=== PATIENT | male | born 1940 ===

== ENCOUNTER 2019-11-07 15:05 | Inpatient (IN) | payer MEDICARE, OTHER, SELFPAY ==
[2019-11-07 15:05] VITALS: BP 125/57; PULSE 66; RESP 22; TEMP 36.4; O2SAT 100; BMI 20.3
--- NOTE | 2019-11-07 15:23 | CT_ITS ---
WS: [id number] CT HEAD NONCONTRAST HISTORY: seizure TECHNIQUE: Contiguous axial imaging performed through the brain in 2.5 mm imaging. Bone and soft tiss ue windows. Sagittal and coronal reformats reviewed. All CT scans at [facility] use at ast one of these dose optimization techniques: automated exposure control; mA and/or kV adjustment pe r patient size (includes targeted exams where dose is matched to clinical indication); or iterative r econstruction. DLP: 499.55 mGy.cm COMPARISON: None available. Moderate size subdural fluid collection over the LEFT cerebrum with a maximum diameter of 12 mm. Subd ural collection is slightly lower density than the CSF in the ventricles. No acute blood products are identified. There is mass effect upon the LEFT frontal, temporal and parietal lobes. Very slight lelia ft of the midline structures by 4 mm. Minimal effacement of the LEFT lateral ventricle. Mild atrophy and chronic ischemic disease. Basal ganglia calcifications. Ventricles: Normal size with no hydrocephalus. Paranasal sinuses: Mild mucoperiosteal thickening in the RIGHT frontal and ethmoid air cells. Mastoid air cells: Well pneumatized. Calvarium and scalp: Skull is intact with no soft tissue edema or swelling. CT/CT head wo con* [id number] IMPRESSION: 1. No acute intracranial hemorrhage. 2. Low-attenuation moderate-sized LEFT subdural hematoma with a maximum diamet er of 12 mm. Alternatively if the patient was very anemic this could be an acut e subdural but more likely chronic subdural hematoma. 3. Mild mass effect upon the LEFT cerebrum with 4 mm of midline shift to the R IGHT.
--- NOTE | 2019-11-07 15:23 | XR_ITS ---
WS: [id number] PORTABLE CHEST HISTORY: chest pain COMPARISON: None available. Chronic interstitial thickening throughout both lungs. No pneumonia. Normal vasculature. No pleural e ffusion or pneumothorax. Cardiac size: Normal. Mediastinum/Aorta: Mild atherosclerosis aorta. Mild osteopenia. XR/XR chest 1V portable [id number] IMPRESSION: Mildly ectatic aorta. No pneumonia.
--- NOTE | 2019-11-07 15:24 | ED_ITS ---
Documented by User: DAVID Singh 11/08/19 07:12 HPI - Altered Mental Status General: Chief Complaint: Altered Mental Status Stated Complaint: AMS Time Seen by Provider: 11/07/19 15:23 Source: family Mode of arrival: EMS Limitations: altered mental status History of Present Illness: HPI narrative: Patient is a 79-year-old male on hospice care for leukemia who presents to ED today along with one of his sons for complaints of an episode of altered mental status. According to the son, the patient was with the hospice nurse when she began noticing the patient convulsing. She stated patient's eyes rolled back in his head , he became unconscious, and began having very stiff jerking like movements. Hospice nurse stated episode lasted approximately 3 minutes. Afterwards patient seemed very confused and altered. The son states patient has had one previous similar episode and was told it was due to anemia. He is not on seizure medications. Patient during my exam is very cachectic appearing. He can tell me his name and . He recognizes and can name his son in the room. He can follow my commands. He does not seem to know where he is at currently however. MD complaint: other (possible seizure) Onset (ago): hour(s) Timing confirmed by: family member and caregiver Treatments prior to arrival: oxygen Review of Systems General: Reports: ROS unobtainable due to medical condition [facility] ED PFSH: Medical History (Updated 11/08/19 @ 07:12 by DAVID Singh) AML (acute myeloblastic leukemia) COPD (chronic obstructive pulmonary disease) GERD (gastroesophageal reflux disease) HTN (hypertension) Physical Exam Const: COMMON NORMALS: alert EXAM LIMITATIONS: other limitations GENERAL APPEARANCE: frail appearing NUTRITIONAL APPEARANCE: cachectic ORIENTATION/CONSCIOUSNESS: Yes awake, Yes oriented to person and Yes Other orientation findings (knows and recognizes his son in the room) HENMT: COMMON NORMALS: normocephalic and atraumatic HEAD & SCALP: normocephalic and atraumatic Eye: COMMON NORMALS: Equal, round and reactive pupils present and EOMs intact bilaterally PUPIL: Yes Equal, round and reactive pupils present Neck/C-Spine: COMMON NORMALS: full ROM Chest: COMMONS NORMALS: normal inspection of the chest and normal palpation of entire chest wall Resp: COMMON NORMALS: clear to auscultation bilaterally EFFORT & INSPECTION: Yes uses accessory muscles AUSCULTATION: clear to auscultation bilaterally OTHER: son states breathing has slowly been worsening-chronic smoker, still smoking everyday Cardio: COMMON NORMALS: regular rate RATE: regular rate RHYTHM: abnormal rhythm GI: COMMON NORMALS: Normal to inspection, nondistended, normoactive bowel sounds present, Soft to palpation, non-tender, No hepatosplenomegaly present and no masses PALPATION: Yes Soft to palpation and Yes No hepatosplenomegaly present Extremity: COMMON NORMALS: capillary refill normal, no joint enlargement and no calf tenderness NARRATIVE EXTREMITY EXAM: bilateral LE non-pitting edema Neuro: TOMASZ COMA SCALE: document GCS findings Tomasz coma scale eye opening: Spontaneous Carlton coma scale verbal response: Orientated Tomasz coma scale motor response: Obey commands Carlton coma scale total score: 15 COMMON NORMALS: moves all extremities SENSORIUM/ORIENTATION: Yes alert and Yes oriented to person Skin: COMMON NORMALS: no rashes or lesions noted GENERAL SKIN EXAM: no rashes or lesions noted Course ED course: pt arrived via EMS on a non-rebreather; son states patient normally does not wear O2 although admittingly states his breathing has progressively worsened over the past few weeks/months; O2 was taken off so patient could be monitored; RN alerted me shortly after that sats had dipped to 88% so he will be placed back on O2 Vital Signs: Vital signs: Vital Signs Temperature 97.5 F L 11/07/19 15:05 Pulse Rate 76 11/07/19 18:28 Respiratory Rate 19 H 11/07/19 18:28 Blood Pressure 134/65 11/07/19 18:28 Pulse Oximetry 100 11/07/19 18:28 MDM - Altered Mental Status MDM Narrative: Medical decision making narrative: I have spoken to family (son in the room and son in [place] that has DPOA) and they have elected for patient not to receive any additional treatment at this time. Son does not want to take his father home and would rather him be admitted with comfort care and allow him to pass here. I have spoken to Dr. Patiño and he will assume care of patient and speak hospitalist and hospice. Lab Data: Labs: Lab Results 11/07/19 11/07/19 11/07/19 Range/Units 15:39 15:39 15:39 WBC 393.8 H* (4.0-10.0) 10^3/ uL RBC 2.15 L (4.1-5.3) 10^6/u L Hgb 6.3 L* (11.7-16.6) g/dL Hct 21.6 L (42.0-52.0) % MCV 100.5 H (80-94) fL MCH 29.3 (28.0-34.0) pg MCHC 29.2 L (30.0-36.0) g/dL RDW 26.1 H (12.1-15.1) % Plt Count 46 L (130-400) 10^3/c mm MPV 9.9 (7.4-10.4) fL Nucleated RBC % (a uto) 0.6 % Total Counted 100 (0-100) Absolute Neutrophi ls 27.6 H (1.4-6.5) 10^3/c mm Segmented Neutroph ils 7 % Abs Segm Neuts (Ma n) 27.5 H (1.6-7.1) 10/cmm Band Neutrophils 0.0 % Abs Band Neuts (Ma n) 0.0 (0.0-1.2) 10^3/c mm Lymphocytes (Manua l) 0 % Monocytes (Manual) 90.0 % Absolute Monocytes 354.4 H (0.1-0.6) 10^3/c mm Nucleated RBCs 3.0 H (0-1) /100WBC Nucleated RBCs # 2.4 /100WBC Platelet Estimate Decreased (Normal) Hypochromasia 2+ H Anisocytosis 1+ H PT (10.5-13.3) SECO NDS INR (0.8-1.2) APTT (23.9-36.7) SECO NDS Sodium 140 (136-145) mmol/L Potassium 2.7 L* (3.5-5.1) mmol/L Chloride 100 (98-107) mmol/L Carbon Dioxide 23 (22-29) mmol/L Anion Gap 19.7 H (5-19) BUN 36 H (8-23) mg/dL Creatinine 5.2 H (0.7-1.2) mg/dL Glucose 123 H (65-115) mg/dL Calculated Osmolal ity 289 (285-295) mOsm/k g Lactate 1.9 (0.5-2.2) mmol/L Calcium 8.1 L (8.5-10.5) mg/dL Magnesium 2.1 (1.7-2.3) mg/dL Total Bilirubin 1.6 H (0.15-1.2) mg/dL AST 52 H (0-40) U/L ALT 21 (0-41) U/L Alkaline Phosphata se 175 H (40-130) IU/L Troponin T Baselin e (0-15) ng/L NT-Pro-B Natriuret Pep 2655 H (0-450) pg/mL Total Protein 5.4 L (6.6-8.7) g/dL Albumin 3.3 L (3.5-5.2) g/dL Globulin 2.1 (1.3-4.6) g/dL 11/07/19 11/07/19 Range/Units 15:39 15:39 WBC (4.0-10.0) 10^3/ uL RBC (4.1-5.3) 10^6/u L Hgb (11.7-16.6) g/dL Hct (42.0-52.0) % MCV (80-94) fL MCH (28.0-34.0) pg MCHC (30.0-36.0) g/dL RDW (12.1-15.1) % Plt Count (130-400) 10^3/c mm MPV (7.4-10.4) fL Nucleated RBC % (a uto) % Total Counted (0-100) Absolute Neutrophi ls (1.4-6.5) 10^3/c mm Segmented Neutroph ils % Abs Segm Neuts (Ma n) (1.6-7.1) 10/cmm Band Neutrophils % Abs Band Neuts (Ma n) (0.0-1.2) 10^3/c mm Lymphocytes (Manua l) % Monocytes (Manual) % Absolute Monocytes (0.1-0.6) 10^3/c mm Nucleated RBCs (0-1) /100WBC Nucleated RBCs # /100WBC Platelet Estimate (Normal) Hypochromasia Anisocytosis PT 18.50 H (10.5-13.3) SECO NDS INR 1.48 H (0.8-1.2) APTT 45.6 H (23.9-36.7) SECO NDS Sodium (136-145) mmol/L Potassium (3.5-5.1) mmol/L Chloride (98-107) mmol/L Carbon Dioxide (22-29) mmol/L Anion Gap (5-19) BUN (8-23) mg/dL Creatinine (0.7-1.2) mg/dL Glucose (65-115) mg/dL Calculated Osmolal ity (285-295) mOsm/k g Lactate (0.5-2.2) mmol/L Calcium (8.5-10.5) mg/dL Magnesium (1.7-2.3) mg/dL Total Bilirubin (0.15-1.2) mg/dL AST (0-40) U/L ALT (0-41) U/L Alkaline Phosphata se (40-130) IU/L Troponin T Baselin e 42 H (0-15) ng/L NT-Pro-B Natriuret Pep (0-450) pg/mL Total Protein (6.6-8.7) g/dL Albumin (3.5-5.2) g/dL Globulin (1.3-4.6) g/dL Imaging Data^: CXR: Radiologist's impression: [place] [address] XRay Report Signed Patient: TENZIN DEAN Unit #: [id number] : 1940 Age/Sex: 79 / M ADM Date: 11/07/19 Loc: ER Room/Bed: Attending Dr: Ordering Provider/Ordering MD: Laurie Montes De Oca Date of Service: 11/07/19 Procedure(s): XR chest 1V portable [id number] Accession Number(s): [id number] Report Number: [id number] WS: [id number] PORTABLE CHEST HISTORY: chest pain COMPARISON: None available. Chronic interstitial thickening throughout both lungs. No pneumonia. Normal vasculature. No pleural effusion or pneumothorax. Cardiac size: Normal. Mediastinum/Aorta: Mild atherosclerosis aorta. Mild osteopenia. XR/XR chest 1V portable [id number] IMPRESSION: Mildly ectatic aorta. No pneumonia. Dictated By: Argentina Ferrer DO Signed By: Argentina Ferrer DO Signed Date/Time: 11/07/19 1544 DD/ 1543 Discharge Plan Discharge Patient Disposition: Admitted As Inpatient Admit Provider: Charlene Prescott Clinical Impression: Thrombocytopenia, Acute hypokalemia, Hyperleukocytosis AML (acute myeloblastic leukemia) Qualifiers: Leukemia Active/Remission status: without remission Qualified Code(s): C92.00 - Acute myeloblastic leukemia, not having achieved remission Acute renal failure Qualifiers: Acute renal failure type: unspecified Qualified Code(s): N17.9 - Acute kidney failure, unspecified Condition: Stable Discharge Date/Time: 11/07/19 18:54 Sign Out Sign Out Data: Patient Sign Out occurred on 11/07/19 at 17:01. Patient's care was discussed, and care was transferred from to Mercedes Patiño. Coding Level of Care Code ED Compressor Station Engineer for Chg Fwd Exam Comprehensive Documented by User: Mercedes Patiño 11/07/19 20:24 HPI - Altered Mental Status General: Chief Complaint: Altered Mental Status Stated Complaint: AMS Time Seen by Provider: 11/07/19 15:23 PFS ED PFSH: Medical History (Updated 11/08/19 @ 07:12 by DAVID Singh) AML (acute myeloblastic leukemia) COPD (chronic obstructive pulmonary disease) GERD (gastroesophageal reflux disease) HTN (hypertension) Course Vital Signs: Vital signs: Vital Signs Temperature 97.5 F L 11/07/19 15:05 Pulse Rate 76 11/07/19 18:28 Respiratory Rate 19 H 11/07/19 18:28 Blood Pressure 134/65 11/07/19 18:28 Pulse Oximetry 100 11/07/19 18:28 MDM - Altered Mental Status MDM Narrative: Medical decision making narrative: Patient care assumed by me from DAVID Singh. Please see her note for history, physical exam and medical decision-making notes. I have reviewed her evaluation and care discussed the case with her personally. I agree with her assessment and plan. I have spoken with the family and the patient and at this time they choose to be only comfort care. The patient at this time does not want to go back and at home with hospice. He prefers to come to the hospital as the family does not believe that hospice is adequately caring for him at the home. I discussed the case in full with Dr. Prescott and she is in agreement. Lab Data: Labs: Lab Results 11/07/19 11/07/19 11/07/19 Range/Units 15:39 15:39 15:39 WBC 393.8 H* (4.0-10.0) 10^3/ uL RBC 2.15 L (4.1-5.3) 10^6/u L Hgb 6.3 L* (11.7-16.6) g/dL Hct 21.6 L (42.0-52.0) % MCV 100.5 H (80-94) fL MCH 29.3 (28.0-34.0) pg MCHC 29.2 L (30.0-36.0) g/dL RDW 26.1 H (12.1-15.1) % Plt Count 46 L (130-400) 10^3/c mm MPV 9.9 (7.4-10.4) fL Nucleated RBC % (a uto) 0.6 % Total Counted 100 (0-100) Absolute Neutrophi ls 27.6 H (1.4-6.5) 10^3/c mm Segmented Neutroph ils 7 % Abs Segm Neuts (Ma n) 27.5 H (1.6-7.1) 10/cmm Band Neutrophils 0.0 % Abs Band Neuts (Ma n) 0.0 (0.0-1.2) 10^3/c mm Lymphocytes (Manua l) 0 % Monocytes (Manual) 90.0 % Absolute Monocytes 354.4 H (0.1-0.6) 10^3/c mm Nucleated RBCs 3.0 H (0-1) /100WBC Nucleated RBCs # 2.4 /100WBC Platelet Estimate Decreased (Normal) Hypochromasia 2+ H Anisocytosis 1+ H PT (10.5-13.3) SECO NDS INR (0.8-1.2) APTT (23.9-36.7) SECO NDS Sodium 140 (136-145) mmol/L Potassium 2.7 L* (3.5-5.1) mmol/L Chloride 100 (98-107) mmol/L Carbon Dioxide 23 (22-29) mmol/L Anion Gap 19.7 H (5-19) BUN 36 H (8-23) mg/dL Creatinine 5.2 H (0.7-1.2) mg/dL Glucose 123 H (65-115) mg/dL Calculated Osmolal ity 289 (285-295) mOsm/k g Lactate 1.9 (0.5-2.2) mmol/L Calcium 8.1 L (8.5-10.5) mg/dL Magnesium 2.1 (1.7-2.3) mg/dL Total Bilirubin 1.6 H (0.15-1.2) mg/dL AST 52 H (0-40) U/L ALT 21 (0-41) U/L Alkaline Phosphata se 175 H (40-130) IU/L Troponin T Baselin e (0-15) ng/L NT-Pro-B Natriuret Pep 2655 H (0-450) pg/mL Total Protein 5.4 L (6.6-8.7) g/dL Albumin 3.3 L (3.5-5.2) g/dL Globulin 2.1 (1.3-4.6) g/dL 11/07/19 11/07/19 Range/Units 15:39 15:39 WBC (4.0-10.0) 10^3/ uL RBC (4.1-5.3) 10^6/u L Hgb (11.7-16.6) g/dL Hct (42.0-52.0) % MCV (80-94) fL MCH (28.0-34.0) pg MCHC (30.0-36.0) g/dL RDW (12.1-15.1) % Plt Count (130-400) 10^3/c mm MPV (7.4-10.4) fL Nucleated RBC % (a uto) % Total Counted (0-100) Absolute Neutrophi ls (1.4-6.5) 10^3/c mm Segmented Neutroph ils % Abs Segm Neuts (Ma n) (1.6-7.1) 10/cmm Band Neutrophils % Abs Band Neuts (Ma n) (0.0-1.2) 10^3/c mm Lymphocytes (Manua l) % Monocytes (Manual) % Absolute Monocytes (0.1-0.6) 10^3/c mm Nucleated RBCs (0-1) /100WBC Nucleated RBCs # /100WBC Platelet Estimate (Normal) Hypochromasia Anisocytosis PT 18.50 H (10.5-13.3) SECO NDS INR 1.48 H (0.8-1.2) APTT 45.6 H (23.9-36.7) SECO NDS Sodium (136-145) mmol/L Potassium (3.5-5.1) mmol/L Chloride (98-107) mmol/L Carbon Dioxide (22-29) mmol/L Anion Gap (5-19) BUN (8-23) mg/dL Creatinine (0.7-1.2) mg/dL Glucose (65-115) mg/dL Calculated Osmolal ity (285-295) mOsm/k g Lactate (0.5-2.2) mmol/L Calcium (8.5-10.5) mg/dL Magnesium (1.7-2.3) mg/dL Total Bilirubin (0.15-1.2) mg/dL AST (0-40) U/L ALT (0-41) U/L Alkaline Phosphata se (40-130) IU/L Troponin T Baselin e 42 H (0-15) ng/L NT-Pro-B Natriuret Pep (0-450) pg/mL Total Protein (6.6-8.7) g/dL Albumin (3.5-5.2) g/dL Globulin (1.3-4.6) g/dL Discharge Plan Discharge Patient Disposition: Admitted As Inpatient Admit Provider: Charlene Prescott Clinical Impression: Thrombocytopenia, Acute hypokalemia, Hyperleukocytosis AML (acute myeloblastic leukemia) Qualifiers: Leukemia Active/Remission status: without remission Qualified Code(s): C92.00 - Acute myeloblastic leukemia, not having achieved remission Acute renal failure Qualifiers: Acute renal failure type: unspecified Qualified Code(s): N17.9 - Acute kidney failure, unspecified Condition: Stable Discharge Date/Time: 11/07/19 18:54 Sign Out Sign Out Data: Patient Sign Out occurred on 11/07/19 at 17:01. Patient's care was discussed, and care was transferred from to Mercedes Patiño. Coding Level of Care Code ED Compressor Station Engineer for [place]rish Fwd Exam Comprehensive
--- NOTE | 2019-11-07 15:36 | ECG_ITS ---
Measurements Intervals [place] Rate: 75 P: 64 MI: 151 QRS: 37 QRSD: 100 T: -26 QT: 429 QTc: 482 SINUS RHYTHM WITH FREQUENT SUPRAVENTRICULAR PREMATURE COMPLEXES NONSPECIFIC ST & T-WAVE ABNORMALITY No previous ECG available for comparison Electronically Signed On 11-07-2019 19:29:10 CDT by Lilia Rausch M.D. [id number]
[2019-11-07 15:59] LABS: Hematocrit 21.6 % (42.0-52.0); Mean Corpuscular HGB Conc 29.2 g/dL (30.0-36.0); Mean Corpuscular Hemoglobin 29.3 pg (28.0-34.0); Mean Corpuscular Volume 100.5 fL (80-94); Mean Platelet Volume 9.9 fL (7.4-10.4); Nucleated Red Blood Cells # 2.4 /100WBC; Nucleated Red Blood Cells % 0.6 %; Platelet Count 46 10^3/cmm (130-400); Red Blood Count 2.15 10^6/uL (4.1-5.3); Red Cell Distribution Width 26.1 % (12.1-15.1)
[2019-11-07 16:02] LABS: INR 1.48 (0.8-1.2)
[2019-11-07 16:03] LABS: Partial Thromboplastin Time 45.6 SECONDS (23.9-36.7)
[2019-11-07 16:05] VITALS: BP 133/61; PULSE 80; RESP 12; O2SAT 100
[2019-11-07 16:06] LABS: Lactate (Lactic Acid level) 1.9 mmol/L (0.5-2.2)
[2019-11-07 16:15] LABS: Alanine Aminotransferase 21 U/L (0-41); Albumin Level 3.3 g/dL (3.5-5.2); Alkaline Phosphatase 175 IU/L (40-130); Anion Gap 19.7 (5-19); Aspartate Amino Transferase 52 U/L (0-40); Blood Urea Nitrogen 36 mg/dL (8-23); Calcium 8.1 mg/dL (8.5-10.5); Carbon Dioxide 23 mmol/L (22-29); Chloride 100 mmol/L (98-107); Globulin 2.1 g/dL (1.3-4.6); Glucose 123 mg/dL (65-115); Magnesium 2.1 mg/dL (1.7-2.3); NT Pro B Type Natriuretic Pept 2655 pg/mL (0-450); Osmolality Calculated 289 mOsm/kg (285-295); Sodium 140 mmol/L (136-145); Total Bilirubin 1.6 mg/dL (0.15-1.2); Total Protein 5.4 g/dL (6.6-8.7)
[2019-11-07 16:19] LABS: Potassium 2.7 mmol/L (3.5-5.1)
[2019-11-07 16:29] LABS: Hemoglobin 6.3 g/dL (11.7-16.6); White Blood Count 393.8 10^3/uL (4.0-10.0)
[2019-11-07 16:30] LABS: Slide Review Slide Review Perform
[2019-11-07 16:31] LABS: Absolute Segmented Neutrophil 27.5 10/cmm (1.6-7.1); Lymphocytes 0 %; Monocytes Absolute 354.4 10^3/cmm (0.1-0.6); Segmented Neutrophils 7 %
[2019-11-07 16:32] LABS: Troponin(5th) Baseline 42 ng/L (0-15)
[2019-11-07 16:33] LABS: Absolute Neutrophil 27.6 10^3/cmm (1.4-6.5); Anisocytosis 1+; Hypochromasia 2+; Platelet Estimate Decreased (Normal)
[2019-11-07 16:37] LABS: Total Cells Counted 100 (0-100)
[2019-11-07 17:04] VITALS: BP 143/63; PULSE 75; RESP 16; O2SAT 100
--- NOTE | 2019-11-07 18:14 | PM.HP ---
Providers/Chief Complaint Admitting Physician: Charlene Prescott MD Primary Care Provider: Dr. Crook Chief Complaint: Seizure-like activity History of Present Illness TENZIN DEAN is a 79 year old male with PMHx of AML, COPD, HTN, GERD, presents to the ER accompanied by family following seizure-like episode earlier this afternoon while at home. Patient is arousable though appears quite ill and fatigued so history obtained from family as well as review of medical records from hospice company. He has been receiving hospice services through [facility]. He moved to [place] in July of this year to be closer to his family; moved from [place] where he was initially diagnosed and per family received 1 cycle of chemotherapy (05/2020) which he was unable to tolerate and opted to discontinue treatment at that time. He shifts restlessly on the stretcher in the ER during my evaluation as he cannot seem to get comfortable but denies overt pain. Family reports minimal appetite due to abdominal fullness, patient is not oxygen dependent at baseline. Family describes seizure-like episode as sudden stiffening of his upper extremities, eyes rolling into the back of his head, non-responsive for a time then subsequently developed labored breathing. Contacted hospice nurse who administered alprazolam and called for an ambulance to bring him to the hospital. He has notable palpable lymph nodes in the supraclavicular and anterior cervical areas, appears gaunt and anasarcic. Patient already has a DNR in place and per his and family's wishes would like to initiate comfort measures at this time; they understand and do not want IV fluid hydration or transfusion. Of note patient's labs are quite abnormal with noted hyperleukocytosis with a white count greater than 390, anemia with a hemoglobin of 6.0, thrombocytopenia with a platelet count of 46, coagulopathy with INR of 1.48, hypokalemia with a potassium of 2.7, BUN of 36, creatinine of 5.2, calcium of 8.1, increased anion gap at 19.7, BNP of 2655, abnormal LFTs. Chest x-ray is unremarkable for infection, CT of the head shows acute versus chronic subdural hematoma with mild mass-effect upon the left cerebrum and midline shift to the right. Patient is currently on 15 L non-rebreather and was noted to desaturate earlier when this was switched to a nasal cannula. Overall prognosis appears quite poor and patient is being admitted for continued comfort measures. Review of Systems General: Reports: ROS unobtainable due to mental status (obtained from family at bedside) Const: Reports: change in appetite (decreased) Card: Reports: swelling of feet/ankles Resp: Reports: other (labored breathing) GI: Reports: early satiety Skin/Breast: Reports: rash Neuro: Reports: seizure-like activity Nasim/Lymph: Reports: easy bruising Medications/Allergies Home Medications Medication Instructions Recorded Confirmed Last Taken Type alprazolam 0.5 mg PO BEDTIME PRN 11/07/19 11/07/19 Unknown History multivitamin 1 tab PO DAILY 11/07/19 11/07/19 Unknown History [id number] 333 mg PO DAILY 11/07/19 11/07/19 Unknown History [Airborne (ascorbate sodium)] Allergies Allergy/AdvReac Type Severity Reaction Status Date / Time No Known Allergies Allergy Verified 11/07/19 15:10 PFSH Acute PFSH: Medical History (Updated 11/07/19 @ 18:48 by Charlene Prescott MD) AML (acute myeloblastic leukemia) COPD (chronic obstructive pulmonary disease) GERD (gastroesophageal reflux disease) HTN (hypertension) Vitals/I&O/Wt Last Vital Signs Temp 97.5 F L 11/07/19 15:05 Pulse 75 11/07/19 17:04 Resp 16 11/07/19 17:04 BP 143/63 11/07/19 17:04 Pulse Ox 100 11/07/19 17:04 Weight last 48 hrs Weight 58.967 kg Physical Exam Const: GENERAL APPEARANCE: frail appearing ORIENTATION/CONSCIOUSNESS: Yes awake, Yes oriented to person and Yes oriented to time OTHER: -gaunt, arousable, anasarca HENMT: COMMON NORMALS: normocephalic, atraumatic and hearing grossly normal bilaterally HEAD & SCALP: normocephalic and atraumatic MOUTH: moist mucous membranes abnormal Details: parched Eye: COMMON NORMALS: Equal, round and reactive pupils present, EOMs intact bilaterally and conjunctivae normal CONJUNCTIVA: Yes conjunctivae normal PUPIL: Yes Equal, round and reactive pupils present Neck/C-Spine: COMMON NORMALS: full ROM GENERAL: Yes normal visual inspection, Yes trachea midline and Yes lymphadenopathy Lymphadenopathy location: anterior cervical and supraclavicular hard and fixed Lymph: LYMPHATIC: lymphadenopathy Resp: COMMON NORMALS: No retractions and No use of accessory muscles EFFORT & INSPECTION: Yes able to speak in complete sentences, Yes symmetric chest movement and No tachypneic AUSCULTATION: clear to auscultation bilaterally OTHER: -on NRB Cardio: COMMON NORMALS: regular rate, regular rhythm, S1 normal heart sound present, S2 normal heart sound present and No murmurs present (Cardio) RATE: regular rate RHYTHM: regular rhythm HEART SOUNDS: S1 normal heart sound present and S2 normal heart sound present GI: COMMON NORMALS: Soft to palpation and non-tender INSPECTION: Yes Anasarca and Yes abdominal distension PALPATION: Yes Soft to palpation Extremity: COMMON NORMALS: normal to inspection and full ROM NARRATIVE EXTREMITY EXAM: -4+ pitting edema of bilateral LEs Neuro: SENSORIUM/ORIENTATION: Yes alert, Yes oriented to person and Yes oriented to time Psych: COMMON NORMALS: mental status grossly normal, Normal thought process present, cooperative, normal affect and speech normal SPEECH: Yes normal speech THOUGHT PROCESS: Normal thought process present Skin: COMMON NORMALS: no rashes or lesions noted, no jaundice and no mottling GENERAL SKIN EXAM: no rashes or lesions noted, ecchymosis (on anterior neck) and petechiae (petechial rash on back) Data : 11/07/19 15:39 11/07/19 15:39 Micro: Microbiology 11/07/19 15:30 Blood Culture - Preliminary Blood SPECIMEN COLLECTED 11/07/19 15:39 Blood Culture - Preliminary Blood SPECIMEN COLLECTED A&P Assessment and plan (1) Seizure: -Noted to have seizure-like activity earlier today with subsequent altered mental status, labored breathing and hypoxia -Given dose of alprazolam by hospice nurse prior to arrival in ER -No reported prior seizure history -Seizure precautions -Ativan PRN Status: Acute (2) AML (acute myeloblastic leukemia): -Reported history of AML, treated with 1 cycle of chemotherapy in May/2019 per family in [place] -Overall very poor prognosis -palpable supraclavicular and anterior cervical lymph nodes Status: Chronic Qualifiers: Leukemia Active/Remission status: without remission Qualified Code(s): C92.00 - Acute myeloblastic leukemia, not having achieved remission (3) Macrocytic anemia: -Secondary to underlying AML -Declined transfusion though noted Hg of 6.0 -Unknown baseline Status: Chronic (4) Thrombocytopenia: -Secondary to underlying AML -Associated petechiae, ecchymosis Status: Chronic (5) GERD (gastroesophageal reflux disease): Status: Chronic Qualifiers: Esophagitis presence: esophagitis presence not specified Qualified Code(s): K21.9 - Gastro-esophageal reflux disease without esophagitis (6) HTN (hypertension): -monitor vital signs Status: Chronic Qualifiers: Hypertension type: essential hypertension Qualified Code(s): I10 - Essential (primary) hypertension (7) COPD (chronic obstructive pulmonary disease): -not oxygen dependent at baseline Status: Chronic Qualifiers: COPD type: unspecified COPD Qualified Code(s): J44.9 - Chronic obstructive pulmonary disease, unspecified (8) Leukocytosis: -noted hyperleukocytosis with WBC >390 K Status: Acute Qualifiers: Leukocytosis type: unspecified Qualified Code(s): D72.829 - Elevated white blood cell count, unspecified (9) Subdural hematoma: -noted evidence of moderate-sized L subdural hematoma, unclear if acute vs. chronic with mild mass effect upon the L cerebellum and midline shift Status: Acute (10) Acute renal failure: -Unclear baseline -likely acute secondary to dehydration -associated increased anion gap, hypokalemia -family has declined IVF hydration Status: Acute Qualifiers: Acute renal failure type: unspecified Qualified Code(s): N17.9 - Acute kidney failure, unspecified Additional A&P Information -Anasarca, likely due to hypoalbuminemia and overall at least moderate protein calorie malnutrition -Hypokalemia; likely due to poor oral intake -Coagulopathy, with noted thrombocytopenia, evidence of bleeding (subdural hematoma) -Elevated LFTs -very poor prognosis; had been receiving hospice services at home through [facility] -comfort measures per discussion with patient and family; family does not feel able to provide care at home -liberal diet as tolerated -Code status: DNR/DNI Attestations Medical Necessity Statement*: TENZIN DEAN's hospital stay will require greater than 2 midnights for comfort measures secondary to AML with associated complications including hyperleukocytosis, subdural hematoma, seizure, anemia, thrombocytopenia. Time Spent in Patient Care: Greater than 35 minutes (>than 50% of time spent in counselling and/or direct pt care on unit). Coding Level of Care Code Acute Staffing Executive for Chg Fwd Diagnoses Seizure R56.9 AML (acute myeloblastic leukemia) C92.00 Leukemia Active/Remission status: without remission Macrocytic anemia D53.9 Thrombocytopenia D69.6 GERD (gastroesophageal reflux disease) K21.9 Esophagitis presence: esophagitis presence not specified HTN (hypertension) I10 Hypertension type: essential hypertension COPD (chronic obstructive pulmonary disease) J44.9 COPD type: unspecified COPD Leukocytosis D72.829 Leukocytosis type: unspecified Subdural hematoma S06.5X9A Acute renal failure N17.9 Acute renal failure type: unspecified
[2019-11-07 18:28] VITALS: BP 134/65; PULSE 76; RESP 19; O2SAT 100
[2019-11-07] MEDS: LORazepam 2 mg/mL INJ 1 mL IVP (20:22)
--- NOTE | 2019-11-07 20:39 | PC.NURSE ---
Patient is on comfort care and family does not want vital signs done at this time. I told them I would come in and do them whenever they would like me to.
[2019-11-08] MEDS: LORazepam 2 mg/mL INJ 1 mL IVP ×4 (01:06→17:36)
[2019-11-08] MEDS: morphine 4 mg/mL SDV 1 mL 2 MG IVP ×7 (10:53→17:38)
--- NOTE | 2019-11-08 11:17 | PC.CHAP ---
Pastoral Care Encounter/Spiritual Assessment Type of Contact [x] Declined link trainer teacher visit [] Patient/Family/Request visit [] Outpatient visit [] Follow-up visit [] Physician referral [] Code/Alert [] Routine visit [] Staff referral [] Actively dying [] Patient sleeping [] Family support [] [] Out of room [] Palliative care [] [] Receiving care in room [] Pre-surgical visit [] Trauma [] Long length of stay [] ICU visit [] Other: Relational/Emotional Strength [] Patient feels connected with others/family/visitors/staff [] Distress [] Loneliness/isolation [] Abandonment Spirituality of Patient [] Person of Sole [] Attends Congregational of their Sole [] Believes in Prayer [] Reads Bible or Restorationism materials [] There are Spiritual issues to be addressed Director Of Financial Reporting Interventions [] Prayer [] Active listening [] Non-anxious presence [] Spiritual/emotional support [] Crisis/trauma care [] Spiritual counseling [] Bereavement support [] Provided bereavement packet [] Provided Bible/devotional materials [] Provided toy/stuffed animal, coloring book to patient or family member [] Provided Communion [] Anointing/[place] [] Salvation [] Completed spiritual assessment [] Other: Impact on Illness or Injury [] Angry [] Fearful [] Anxious [] Often cries [] Exhaustion [] Unable to work [] Unable to attend holiness [] Unable to walk/stand [] Unable to read [] Unable to drive [] Unable to eat/drink [] Unable to sleep [] Unable to be with family [] Patient intubated [] Other: Summary Declined link trainer teacher visit Time spent with patient 5 mins
--- NOTE | 2019-11-08 12:19 | P.PN_ITS ---
Subjective Subjective: Interval history: Family at bedside, agonal breathing, unresponsive, diaphoretic, anasarca persists. Switched to PR. Medications: Reviewed: Yes Medication Review Details: Active Medications Generic Name Dose Route Start Last Admin Trade Name Freq PRN Reason Stop Dose Admin Atropine Sulfate 4 drop 11/07/19 19:26 Isopto Atropine SUBLINGUAL Q2H PRN SECRETIONS Lorazepam 2 mg 11/07/19 19:26 11/08/19 10:52 Ativan IVP 2 mg Q2H PRN Administration ANXIETY Morphine Sulfate 2 mg 11/07/19 19:26 11/08/19 11:57 Morphine IVP 2 mg Q5M PRN Administration Severe Pain or ai r hunger Ondansetron HCl 4 mg 11/07/19 19:26 Zofran IVP Q6H PRN NAUSEA AND VOMITI NG No Known Allergies Allergy (Verified 11/07/19 15:10) Vitals/I&O/Wt Last Vital Signs Temp 97.5 F L 11/07/19 15:05 Pulse 76 11/07/19 18:28 Resp 19 H 11/07/19 18:28 BP 134/65 11/07/19 18:28 Pulse Ox 100 11/07/19 18:28 Weight last 48 hrs Weight 58.967 kg Physical Exam Const: GENERAL APPEARANCE: frail appearing, appears older than stated age, diaphoretic and Edematous ORIENTATION/CONSCIOUSNESS: Yes awake OTHER: - gaunt, unresponsive HENMT: COMMON NORMALS: normocephalic and atraumatic HEAD & SCALP: normocephalic and atraumatic MOUTH: moist mucous membranes abnormal Details: parched Neck/C-Spine: GENERAL: Yes trachea midline and Yes lymphadenopathy Lymphadenopathy location: anterior cervical and supraclavicular hard and fixed Lymph: LYMPHATIC: lymphadenopathy Resp: COMMON NORMALS: No retractions EFFORT & INSPECTION: Yes symmetric chest movement, Yes tachypneic and Yes labored OTHER: -on NRB (15 L); coarse breath sounds diffusely Cardio: COMMON NORMALS: regular rate, regular rhythm, S1 normal heart sound present, S2 normal heart sound present and No murmurs present (Cardio) RATE: regular rate RHYTHM: regular rhythm HEART SOUNDS: S1 normal heart sound present and S2 normal heart sound present GI: COMMON NORMALS: Soft to palpation and non-tender INSPECTION: Yes An asarca and Yes abdominal distension PALPATION: Yes Soft to palpation Extremity: COMMON NORMALS: normal to inspection and full ROM NARRATIVE EXTREMITY EXAM: -4+ pitting edema of bilateral LEs Neuro: OTHER: -unresponsive Psych: OTHER: -unresponsive Skin: GENERAL SKIN EXAM: ecchymosis (on anterior neck) and petechiae (petechial rash on back) HAIR: patchy alopecia Data : 11/07/19 15:39 11/07/19 15:39 Micro: Microbiology 11/07/19 15:30 Blood Culture - Preliminary Blood SPECIMEN COLLECTED 11/07/19 15:39 Blood Culture - Preliminary Blood SPECIMEN COLLECTED A&P Assessment and plan (1) Seizure: -Noted to have seizure-like activity earlier today with subsequent altered mental status, labored breathing and hypoxia -Given dose of alprazolam by hospice nurse prior to arrival in ER -No reported prior seizure history -Seizure precautions -Ativan PRN Status: Acute (2) AML (acute myeloblastic leukemia): -Reported history of AML, treated with 1 cycle of chemotherapy in May/2019 per family in [place] -Overall very poor prognosis -palpable supraclavicular and anterior cervical lymph nodes Status: Chronic Qualifiers: Leukemia Active/Remission status: without remission Qualified Code(s): C92.00 - Acute myeloblastic leukemia, not having achieved remission (3) Macrocytic anemia: -Secondary to underlying AML -Declined transfusion though noted Hg of 6.0 -Unknown baseline Status: Chronic (4) Thrombocytopenia: -Secondary to underlying AML -Associated petechiae, ecchymosis Status: Chronic (5) GERD (gastroesophageal reflux disease): Status: Chronic Qualifiers: Esophagitis presence: esophagitis presence not specified Qualified Code(s): K21.9 - Gastro-esophageal reflux disease without esophagitis (6) HTN (hypertension): -monitor vital signs Status: Chronic Qualifiers: Hypertension type: essential hypertension Qualified Code(s): I10 - E ssential (primary) hypertension (7) COPD (chronic obstructive pulmonary disease): -not oxygen dependent at baseline Status: Chronic Qualifiers: COPD type: unspecified COPD Qualified Code(s): J44.9 - Chronic obstructive pulmonary disease, unspecified (8) Leukocytosis: -noted hyperleukocytosis with WBC >390 K Status: Acute Qualifiers: Leukocytosis type: unspecified Qualified Code(s): D72.829 - Elevated white blood cell count, unspecified (9) Subdural hematoma: -noted evidence of moderate-sized L subdural hematoma, unclear if acute vs. chronic with mild mass effect upon the L cerebellum and midline shift Status: Acute (10) Acute renal failure: -Unclear baseline -likely acute secondary to dehydration -associated increased anion gap, hypokalemia -family has declined IVF hydration Status: Acute Qualifiers: Acute renal failure type: unspecified Qualified Code(s): N17.9 - Acute kidney failure, unspecified Additional A&P Information -Anasarca, likely due to hypoalbuminemia and overall at least moderate protein calorie malnutrition -Hypokalemia; likely due to poor oral intake -Coagulopathy, with noted thrombocytopenia, evidence of bleeding (subdural hematoma) -Elevated LFTs -very poor prognosis; had been receiving hospice services at home through [facility] -comfort measures per discussion with patient and family; family does not feel able to provide care at home -unresponsive, noted agonal breathing; anticipate imminent -Code status: DNR/DNI Attestations Medical Necessity Statement*: Patient requires hospitalization for continued comfort measures. Time Spent in Patient Care: 16 - 35 minutes (>than 50% of time spent in counselling and/or direct pt care on unit) . Coding Level of Care Code Acute Salesperson Toy [employer] Accessories for Chg Fwd Diagnoses Seizure R56.9 AML (acute myeloblastic leukemia) C92.00 Leukemia Active/Remission status: without remission Macrocytic anemia D53.9 Thrombocytopenia D69.6 GERD (gastroesophageal reflux disease) K21.9 Esophagitis presence: esophagitis presence not specified HTN (hypertension) I10 Hypertension type: essential hypertension COPD (chronic obstructive pulmonary disease) J44.9 COPD type: unspecified COPD Leukocytosis D72.829 Leukocytosis type: unspecified Subdural hematoma S06.5X9A Acute renal failure N17.9 Acute renal failure type: unspecified
--- NOTE | 2019-11-08 19:09 | PC.NURSE ---
Family notified nursing staff that patient had passed. Upon assessment there was no apical pulse for one minute. Verified by second RN, Julian. Family is at bedside. Leelee GUZMAN notified Dr. Prescott.
--- NOTE | 2019-11-08 19:25 | PM.DDS ---
Discharge Providers DDS Date of Admission: 11/07/19 17:08 Date Summary Completed: 11/08/19 Attending Provider at Admission: Charlene Prescott MD Time of : 19:00 Attending Provider at Discharge: Charlene Prescott MD DS Diagnoses Probable Cause of Leukemia Hospital Diagnoses (1) Seizure: Problem details: -Noted to have seizure-like activity earlier today with subsequent altered mental status, labored breathing and hypoxia -Given dose of alprazolam by hospice nurse prior to arrival in ER -No reported prior seizure history -Seizure precautions -Ativan PRN (2) AML (acute myeloblastic leukemia): Problem details: -Reported history of AML, treated with 1 cycle of chemotherapy in May/2019 per family in [place] -Overall very poor prognosis -palpable supraclavicular and anterior cervical lymph nodes Qualifiers: Leukemia Active/Remission status: without remission Qualified Code(s): C92.00 - Acute myeloblastic leukemia, not having achieved remission (3) Macrocytic anemia: Problem details: -Secondary to underlying AML -Declined transfusion though noted Hg of 6.0 -Unknown baseline (4) Thrombocytopenia: Problem details: -Secondary to underlying AML -Associated petechiae, ecchymosis (5) GERD (gastroesophageal reflux disease): Qualifiers: Esophagitis presence: esophagitis presence not specified Qualified Code(s): K21.9 - Gastro-esophageal reflux disease without esophagitis (6) HTN (hypertension): Qualifiers: Hypertension type: essential hypertension Qualified Code(s): I10 - Essential (primary) hypertension (7) COPD (chronic obstructive pulmonary disease): Qualifiers: COPD type: unspecified COPD Qualified Code(s): J44.9 - Chronic obstructive pulmonary disease, unspecified (8) Leukocytosis: Qualifiers: Leukocytosis type: unspecified Qualified Code(s): D72.829 - Elevated white blood cell count, unspecified (9) Subdural hematoma: (10) Acute renal failure: Problem details: -Unclear baseline -likely acute secondary to dehydration -associated increased anion gap, hypokalemia -family has declined IVF hydration Qualifiers: Acute renal failure type: unspecified Qualified Code(s): N17.9 - Acute kidney failure, unspecified Other Contributing Factors/Diagnoses -Anasarca, likely due to hypoalbuminemia and overall at least moderate protein calorie malnutrition -Hypokalemia; likely due to poor oral intake -Coagulopathy, with noted thrombocytopenia, evidence of bleeding (subdural hematoma) -Elevated LFTs Reason for Visit Reason for Visit: Seizure-like activity Summary Date and Time of : Date of : 11/08/19 Time of : 19:00 Summary: Summary: Patient was admitted to the medical surgical floor and continued on comfort measures per family's request. As previously documented patient had been found to have hyperleukocytosis, acute renal failure, hypokalemia, subdural hematoma, macrocytic anemia and thrombocytopenia. He had presented following seizure-like episode. Supportive care was initiated and per family's request he did not receive electrolyte replacement, antibiotics or IV fluid hydration. Upon arrival to the floor he was unresponsive and maintained on supplemental oxygen. He gradually decompensated until time of at 1900 this evening. Family present at bedside. Cause of is acute hypoxic respiratory failure secondary to advanced AML complicated by acute renal failure, hyperleukocytosis, macrocytic anemia, thrombocytopenia, acute renal failure and subdural hematoma. Additional Data: Advance directives?: Yes (DPOA: leatha Abebe) Discharge Plan Discharge Patient Disposition: Condition: Stable Probable Cause of Probable cause of : Leukemia DS Attestations Time Spent in /Discharge Care*: less than 30 min Quality - AMI: AMI present?: No Quality - Stroke: CVA present?: No Quality - VTE: VTE present?: No Coding Level of Care Code Acute Clinical Business Analyst for g Fwd Diagnoses Seizure R56.9 AML (acute myeloblastic leukemia) C92.00 Leukemia Active/Remission status: without remission Macrocytic anemia D53.9 Thrombocytopenia D69.6 GERD (gastroesophageal reflux disease) K21.9 Esophagitis presence: esophagitis presence not specified HTN (hypertension) I10 Hypertension type: essential hypertension COPD (chronic obstructive pulmonary disease) J44.9 COPD type: unspecified COPD Leukocytosis D72.829 Leukocytosis type: unspecified Subdural hematoma S06.5X9A Acute renal failure N17.9 Acute renal failure type: unspecified
--- NOTE | 2019-11-08 20:49 | SUR.PHASEI ---
Organ Donation: Pt is not a candidate and have been given the OK to release his body to [facility].
--- NOTE | 2019-11-08 21:44 | PC.NURSE ---
Pt has been picked up by [facility].
--- NOTE | 2019-11-09 16:33 | PC.RESP ---
PULMONARY REHAB INFORMATION SENT TO PATIENT.
== END 2019-11-08 21:47 | disposition expired | DRG 951 ==
LOC: ER 17:01 → MEDSURG 17:20
PROVIDERS: Physician Assistant; Admitting Provider Family Medicine; Emergency Provider Emergency Medicine; Visit Provider Family Medicine
DX: Z51.5 Encounter for palliative care (principal); S06.5X0A Traumatic subdural hemorrhage without loss of consciousness, initial encounter; J96.01 Acute respiratory failure with hypoxia; C92.00 Acute myeloblastic leukemia, not having achieved remission; N17.9 Acute kidney failure, unspecified; R56.9 Unspecified convulsions; J44.9 Chronic obstructive pulmonary disease, unspecified; I10 Essential (primary) hypertension; Z92.21 Personal history of antineoplastic chemotherapy; Z66 Do not resuscitate; X58.XXXA Exposure to other specified factors, initial encounter; K21.9 Gastro-esophageal reflux disease without esophagitis; D53.9 Nutritional anemia, unspecified; E86.0 Dehydration; E87.6 Hypokalemia; D69.6 Thrombocytopenia, unspecified
CPT/HCPCS: 12345; 36415; 70450; 71045; 80053; 83605; 83735; 83880; 84484; 85007; 85025; 85610; 85730; 87040; 93005; 94762; 96375; 99282; J2060; J2270